=== PATIENT | male | born 1990 | race Caucasian/White ===

== ENCOUNTER 2021-12-06 16:47 | Emergency (ER) | payer OTHER, SELFPAY ==
[2021-12-06] VITALS (129 sets, daily range): BP systolic 83–165; BP diastolic 52–115; PULSE 41–157; RESP 12–45; TEMP 36.8; O2SAT 84–100; BMI 30.9
--- NOTE | 2021-12-06 17:02 | DI.RAD.S_ITS ---
PROCEDURE: XR CHEST 1V INDICATIONS: Short of breath TECHNIQUE: One view of the chest was acquired. COMPARISON: None. FINDINGS: Surgical changes and devices: None. Lungs and pleura: Low lung volumes are seen. There is blunting of both costophrenic angles. Generalized interstitial prominence can be seen. No pneumothorax is seen. Mediastinum: Mediastinal contours appear normal. Heart size is moderately enlarged. Bones and chest wall: No suspicious bony lesions. Overlying soft tissues appear unremarkable. IMPRESSION: Suspicion for CHF, with cardiomegaly, small bilateral pleural effusions and generalized interstitial prominence. Dictated by: Ketan Jay M.D. on 12/06/2021 at 16:49 Approved by: Ketan Jay M.D. on 12/06/2021 at 16:49
--- NOTE | 2021-12-06 17:03 | ED_ITS ---
HPI - SOB/Dyspnea <Kristy Perez DO - Last Filed: 12/07/21 08:20> General Chief Complaint: Shortness of Breath/Dyspnea Stated Complaint: SOB Time Seen by Provider: 12/06/21 17:01 Source: patient Mode of arrival: Ambulatory Limitations: no limitations History of Present Illness HPI Narrative: This is a 31-year-old male who comes with complaint of increasing dyspnea after traveling to [place] and the [facility]. Patient has noted exertional dyspnea but also to the point that now he even when resting. He has not had fevers, no cold cough or congestion. He has had some centralized chest pressure. He describes it as mild. It does not radiate. He denies nausea or vomiting he has been sweaty. Patient denies any swelling or cramping in his legs but noted he was having some cramping in his arms with cough. He denies medical issues other than obstructive sleep apnea and uses a CPAP at night. No prior embolic history. He does not take any daily medications. No prior surgeries. No known drug allergies. Patient does smoke daily, does drink alcohol occasionally, no illicit. Patient denies any family history of cardiac, pulmonary or embolic history. Related Data Allergies Allergy/AdvReac Type Severity Reaction Status Date / Time No Known Drug Allergies Allergy Verified 12/06/21 18:30 <Kristyn Rubio MD - Last Filed: 12/07/21 02:46> History of Present Illness HPI Narrative: This is a 31-year-old male who comes with complaint of increasing dyspnea after traveling to [facility]. Patient has noted exertional dyspnea but also to the point that now he even when resting. He has not had fevers, no cold cough or congestion. He has had some centralized chest pressure. He describes it as mild. It does not radiate. He denies nausea or vomiting he has been sweaty. Patient denies any swelling or cramping in his legs but noted he was having some cramping in his arms with cough. He denies medical issues other than obstructive sleep apnea and uses a CPAP at night. No prior embolic history. He does not take any daily medications. No prior surgeries. No known drug allergies. Patient does smoke daily, does drink alcohol occasionally, no illicit. Patient denies any family history of cardiac, pulmonary or embolic history. 610 pm transfer of care is sec did for this gentleman. He has independently examined. Additional history, he notes that he flew back from [place] last night. His initial symptoms were 4 days ago with dramatic onset of exertional dyspnea walking his dog and progressively worsened over the last 4 days. He traveled to [place] a month ago and had an acute viral illness with diarrhea, testing COVID negative and stool samples did not show over parasites. This has since [facility] ed. In terms of stimulant use he states that he typically has between 4 and 5 cups of coffee over the course of the day but does not use any additional stimulants and specifically denies cocaine, amphetamine or methamphetamine. Notes that he had been taking testosterone for body building but has not done this for a number of months. He does have a CPAP at home Review of Systems <Kristy Perez DO - Last Filed: 12/07/21 08:20> Review of Systems ROS Unobtainable: All systems reviewed & are unremarkable except as noted in HPI and below Patient History <Kristy Perez DO - Last Filed: 12/07/21 08:20> Social History Smoking Status: Current every day smoker Exam <Kristy Perez DO - Last Filed: 12/07/21 08:20> Narrative Exam Narrative: GEN: Male, alert and oriented x 3, patient appears to be in moderate distress. Patient is diaphoretic HEENT: Atraumatic, pupils are equal round reactive to light, extraocular movements are intact, nares are clear. HEART: Tachycardic irregularly irregular rate and rhythm without murmur, clicks, rubs. Patient has poor cap refill. LUNGS:Lungs wheezes bilaterally, no rales, crackles, chest moves symmetrically, positive for tachypnea speaks in 3-4 word sentences. ABD:bowel sounds normal, soft, non-tender, no guarding, rebound, rigidity, no masses noted, no hepatosplenomegaly :No CVA tenderness MSCL: Non-tender, patient does not any swelling bilateral lower extremities. Muscles strength 5/5 upper and lower extremities, full range of motion. NEURO:CN 2-12 intact, sensation normal SKIN: No rash or petechiae. On Re exam after he returns from CT scan, 6:10 p.m. General poor perfusion overall with significantly delayed peripheral capillary refill. Diaphoretic. Respiratory: Increased tachypnea, for 5 word sentences. Minimal bibasilar crackles Cardiac: Irregularly irregular with a rate in the 130 range. No rubs and no murmurs are appreciated. Positive JVD Abdomen: Benign. No hepatic jugular reflux Extremities: Moving all extremities. No edema. For refill even in upper extremities Initial Vital Signs Initial Vital Signs: Vital Signs Temperature 98.2 F 12/06/21 16:47 Pulse Rate 60 12/06/21 16:47 Respiratory Rate 22 12/06/21 16:47 Blood Pressure 158/106 H 12/06/21 16:47 Pulse Oximetry 96 12/06/21 16:47 Oxygen Delivery Method 12/06/21 16:47 <Kristyn Rubio MD - Last Filed: 12/07/21 02:46> Narrative Exam Narrative: GEN: Male, alert and oriented x 3, patient appears to be in moderate distress. Patient is diaphoretic HEENT: Atraumatic, pupils are equal round reactive to light, extraocular movements are intact, nares are clear. HEART: Bradycardic but Regular rate and rhythm without murmur, clicks, rubs. Patient has poor cap refill. LUNGS:Lungs clear to auscultation, no wheezes, rales, crackles, chest moves symmetrically, positive for tachypnea speaks in 3-4 word sentences. ABD:bowel sounds normal, soft, non-tender, no guarding, rebound, rigidity, no masses noted, no hepatosplenomegaly :No CVA tenderness MSCL: Non-tender, patient does not any swelling bilateral lower extremities. Muscles strength 5/5 upper and lower extremities, full range of motion, normal gait NEURO:CN 2-12 intact, sensation normal SKIN: No rash or petechiae. On Re exam after he returns from CT scan, 6:10 p.m. General poor perfusion overall with significantly delayed peripheral capillary refill. Diaphoretic. Respiratory: Increased tachypnea, for 5 word sentences. Minimal bibasilar crackles Cardiac: Irregularly irregular with a rate in the 130 range. No rubs and no murmurs are appreciated. Positive JVD Abdomen: Benign. No hepatic jugular reflux Extremities: Moving all extremities. No edema. For refill even in upper extremities Initial Vital Signs Initial Vital Signs: Vital Signs Temperature 98.2 F 12/06/21 16:47 Pulse Rate 60 12/06/21 16:47 Respiratory Rate 22 12/06/21 16:47 Blood Pressure 158/106 H 12/06/21 16:47 Pulse Oximetry 96 12/06/21 16:47 Oxygen Delivery Method 12/06/21 16:47 Course <Kristy C Chris, - Last Filed: 12/07/21 08:20> Orders Ordered: ED Orders 12/07/21 00:37 Partial Thromboplastin Time Q6H 12/07/21 06:15 Partial Thromboplastin Time Q6H Discontinued Medications Digoxin (Digoxin 500 Mcg/2 Ml Ampul) 250 mcg IV NOW ONE Stop: 12/06/21 18:38 Last Admin: 12/06/21 18:54 Dose: 250 mcg Documented By: TABITHA Diltiazem HCl (Diltiazem 5 Mg/Ml Sdv) 20 mg IV NOW ONE Stop: 12/06/21 17:29 Last Admin: 12/06/21 17:35 Dose: Not Given Documented By: EVELIN Furosemide (Furosemide 100 Mg/10 Ml Vial) 60 mg IV NOW ONE Stop: 12/06/21 18:38 Last Admin: 12/06/21 18:54 Dose: 60 mg Documented By: TABITHA Heparin Sodium (Porcine) (Heparin 5,000 Unit/Ml Vial) 8,500 unit 80 unit/kg (8500 unit) IV NOW ONE Stop: 12/06/21 18:10 Last Admin: 12/06/21 18:31 Dose: 8,500 unit Documented By: TABITHA(2) Heparin Sodium (Porcine) (Heparin 5,000 Unit/Ml Vial) 5,000 unit IV NOW ONE Stop: 12/07/21 01:17 Sodium Chloride (Normal Saline 0.9%) 1,000 mls @ 1,000 mls/hr IV BOLUS ONE Stop: 12/06/21 18:30 Last Infusion: 12/06/21 19:21 Dose: 0 mls/hr Documented By: Admin: 12/06/21 18:00 Dose: 1,000 mls/hr Documented By: TABITHA(2) Admin: 12/06/21 17:44 Dose: 1,000 mls/hr Documented By: TABITHA(3) DILTIAZEM (Diltiazem 125 Mg/125 Ml-D5w) 125 mg in 125 mls @ 5 mls/hr IV TITRATE DILLAN; Protocol Last Admin: 12/06/21 18:30 Dose: Not Given Documented By: TABITHA(2) Heparin Sodium/Dextrose (Heparin Drip) 25,000 unit in 500 mls @ 24 mls/hr IV CONT DILLAN; Protocol Last Titration: 12/07/21 01:15 Dose: 1,250 units/hr, 25 mls/hr Documented By: Titration: 12/07/21 01:14 Dose: 1,400 units/hr, 28 mls/hr Documented By: Admin: 12/06/21 18:32 Dose: 1,200 units/hr, 24 mls/hr Documented By: TABITHA(2) DILTIAZEM (Diltiazem 125 Mg/125 Ml-D5w) 125 mg in 125 mls @ 5 mls/hr IV TITRATE DILLAN; Protocol Last Titration: 12/06/21 22:27 Dose: 0 mg/hr, 0 mls/hr Documented By: Titration: 12/06/21 22:13 Dose: 5 mg/hr, 5 mls/hr Documented By: Titration: 12/06/21 20:28 Dose: 10 mg/hr, 10 mls/hr Documented By: Titration: 12/06/21 20:00 Dose: 15 mg/hr, 15 mls/hr Documented By: Titration: 12/06/21 19:38 Dose: 10 mg/hr, 10 mls/hr Documented By: Admin: 12/06/21 19:18 Dose: 5 mg/hr, 5 mls/hr Documented By: TABITHA Ketamine HCl (Ketamine 500 Mg/5 Ml Inj) 200 mg IM NOW ONE Stop: 12/06/21 23:18 Last Admin: 12/07/21 00:33 Dose: Not Given Documented By: EB Metoprolol Tartrate (Metoprolol Tartrate 5 Mg/5 Ml Inj) 5 mg IV Q5M DILLAN Stop: 12/06/21 17:41 Last Admin: 12/06/21 18:41 Dose: Not Given Documented By: TABITHA(2) Admin: 12/06/21 18:41 Dose: Not Given Documented By: TABITHA(2) Admin: 12/06/21 17:34 Dose: 5 mg Documented By: TABITHA(3) Vital Signs Vital signs: Vital Signs - 8 hr 12/07/21 00:15 12/07/21 00:16 12/07/21 00:16 Pulse Rate 110 H 105 H Respiratory Rate 28 H 27 H Blood Pressure 123/77 Pulse Oximetry 93 93 Fraction of Inspired Oxygen 12/07/21 00:20 12/07/21 00:25 12/07/21 00:30 Pulse Rate 121 H 114 H 105 H Respiratory Rate 28 H 18 14 Blood Pressure Pulse Oximetry 93 95 95 Fraction of Inspired Oxygen 12/07/21 00:35 12/07/21 00:40 12/07/21 00:40 Pulse Rate 126 H 111 H Respiratory Rate 31 H 15 Blood Pressure 137/68 Pulse Oximetry 94 96 Fraction of Inspired Oxygen 12/07/21 00:45 12/07/21 00:45 12/07/21 00:50 Pulse Rate 130 H 115 H Respiratory Rate 19 16 Blood Pressure 108/53 L Pulse Oximetry 96 96 Fraction of Inspired Oxygen 12/07/21 00:55 12/07/21 01:00 12/07/21 01:01 Pulse Rate 137 H 128 H 112 H Respiratory Rate 23 21 15 Blood Pressure Pulse Oximetry 95 95 95 Fraction of Inspired Oxygen 12/07/21 01:01 12/07/21 01:05 12/07/21 01:10 Pulse Rate 135 H 117 H Respiratory Rate 20 16 Blood Pressure 111/59 L Pulse Oximetry 95 94 Fraction of Inspired Oxygen 12/07/21 01:15 12/07/21 01:20 12/07/21 01:25 Pulse Rate 129 H 128 H 128 H Respiratory Rate 23 21 21 Blood Pressure Pulse Oximetry 93 95 96 Fraction of Inspired Oxygen 12/07/21 01:30 12/07/21 01:31 12/07/21 01:31 Pulse Rate 122 H 120 H Respiratory Rate 22 25 H Blood Pressure 163/117 H Pulse Oximetry 95 95 Fraction of Inspired Oxygen 12/07/21 01:35 12/07/21 01:40 12/07/21 01:45 Pulse Rate 123 H 113 H 121 H Respiratory Rate 16 14 26 H Blood Pressure Pulse Oximetry 95 95 96 Fraction of Inspired Oxygen 12/07/21 01:50 12/07/21 01:55 12/07/21 00:20 Pulse Rate 135 H 106 H Respiratory Rate 23 23 Blood Pressure 111/60 Pulse Oximetry 94 94 Fraction of Inspired Oxygen 30 <Kristyn L Laursen, MD - Last Filed: 12/07/21 02:46> Orders Ordered: ED Orders 12/07/21 00:37 Partial Thromboplastin Time Q6H 12/07/21 06:15 Partial Thromboplastin Time Q6H Discontinued Medications Digoxin (Digoxin 500 Mcg/2 Ml Ampul) 250 mcg IV NOW ONE Stop: 12/06/21 18:38 Last Admin: 12/06/21 18:54 Dose: 250 mcg Documented By: TABITHA Diltiazem HCl (Diltiazem 5 Mg/Ml Sdv) 20 mg IV NOW ONE Stop: 12/06/21 17:29 Last Admin: 12/06/21 17:35 Dose: Not Given Documented By: EVELIN Furosemide (Furosemide 100 Mg/10 Ml Vial) 60 mg IV NOW ONE Stop: 12/06/21 18:38 Last Admin: 12/06/21 18:54 Dose: 60 mg Documented By: TABITHA Heparin Sodium (Porcine) (Heparin 5,000 Unit/Ml Vial) 8,500 unit 80 unit/kg (8500 unit) IV NOW ONE Stop: 12/06/21 18:10 Last Admin: 12/06/21 18:31 Dose: 8,500 unit Documented By: TABITHA(2) Heparin Sodium (Porcine) (Heparin 5,000 Unit/Ml Vial) 5,000 unit IV NOW ONE Stop: 12/07/21 01:17 Sodium Chloride (Normal Saline 0.9%) 1,000 mls @ 1,000 mls/hr IV BOLUS ONE Stop: 12/06/21 18:30 Last Infusion: 12/06/21 19:21 Dose: 0 mls/hr Documented By: Admin: 12/06/21 18:00 Dose: 1,000 mls/hr Documented By: TABITHA(2) Admin: 12/06/21 17:44 Dose: 1,000 mls/hr Documented By: TABITHA(3) DILTIAZEM (Diltiazem 125 Mg/125 Ml-D5w) 125 mg in 125 mls @ 5 mls/hr IV TITRATE DILLAN; Protocol Last Admin: 12/06/21 18:30 Dose: Not Given Documented By: TABITHA(2) Heparin Sodium/Dextrose (Heparin Drip) 25,000 unit in 500 mls @ 24 mls/hr IV CONT DILLAN; Protocol Last Titration: 12/07/21 01:15 Dose: 1,250 units/hr, 25 mls/hr Documented By: Titration: 12/07/21 01:14 Dose: 1,400 units/hr, 28 mls/hr Documented By: Admin: 12/06/21 18:32 Dose: 1,200 units/hr, 24 mls/hr Documented By: TABITHA(2) DILTIAZEM (Diltiazem 125 Mg/125 Ml-D5w) 125 mg in 125 mls @ 5 mls/hr IV TITRATE DILLAN; Protocol Last Titration: 12/06/21 22:27 Dose: 0 mg/hr, 0 mls/hr Documented By: Titration: 12/06/21 22:13 Dose: 5 mg/hr, 5 mls/hr Documented By: Titration: 12/06/21 20:28 Dose: 10 mg/hr, 10 mls/hr Documented By: Titration: 12/06/21 20:00 Dose: 15 mg/hr, 15 mls/hr Documented By: Titration: 12/06/21 19:38 Dose: 10 mg/hr, 10 mls/hr Documented By: Admin: 12/06/21 19:18 Dose: 5 mg/hr, 5 mls/hr Documented By: TABITHA Ketamine HCl (Ketamine 500 Mg/5 Ml Inj) 200 mg IM NOW ONE Stop: 12/06/21 23:18 Last Admin: 12/07/21 00:33 Dose: Not Given Documented By: EVELIN Metoprolol Tartrate (Metoprolol Tartrate 5 Mg/5 Ml Inj) 5 mg IV Q5M DILLAN Stop: 12/06/21 17:41 Last Admin: 12/06/21 18:41 Dose: Not Given Documented By: TABITHA(2) Admin: 12/06/21 18:41 Dose: Not Given Documented By: TABITHA(2) Admin: 12/06/21 17:34 Dose: 5 mg Documented By: TABITHA(3) Vital Signs Vital signs: Vital Signs - 8 hr 12/07/21 00:15 12/07/21 00:16 12/07/21 00:16 Pulse Rate 110 H 105 H Respiratory Rate 28 H 27 H Blood Pressure 123/77 Pulse Oximetry 93 93 Fraction of Inspired Oxygen 12/07/21 00:20 12/07/21 00:25 12/07/21 00:30 Pulse Rate 121 H 114 H 105 H Respiratory Rate 28 H 18 14 Blood Pressure Pulse Oximetry 93 95 95 Fraction of Inspired Oxygen 12/07/21 00:35 12/07/21 00:40 12/07/21 00:40 Pulse Rate 126 H 111 H Respiratory Rate 31 H 15 Blood Pressure 137/68 Pulse Oximetry 94 96 Fraction of Inspired Oxygen 12/07/21 00:45 12/07/21 00:45 12/07/21 00:50 Pulse Rate 130 H 115 H Respiratory Rate 19 16 Blood Pressure 108/53 L Pulse Oximetry 96 96 Fraction of Inspired Oxygen 12/07/21 00:55 12/07/21 01:00 12/07/21 01:01 Pulse Rate 137 H 128 H 112 H Respiratory Rate 23 21 15 Blood Pressure Pulse Oximetry 95 95 95 Fraction of Inspired Oxygen 12/07/21 01:01 12/07/21 01:05 12/07/21 01:10 Pulse Rate 135 H 117 H Respiratory Rate 20 16 Blood Pressure 111/59 L Pulse Oximetry 95 94 Fraction of Inspired Oxygen 12/07/21 01:15 12/07/21 01:20 12/07/21 01:25 Pulse Rate 129 H 128 H 128 H Respiratory Rate 23 21 21 Blood Pressure Pulse Oximetry 93 95 96 Fraction of Inspired Oxygen 12/07/21 01:30 12/07/21 01:31 12/07/21 01:31 Pulse Rate 122 H 120 H Respiratory Rate 22 25 H Blood Pressure 163/117 H Pulse Oximetry 95 95 Fraction of Inspired Oxygen 12/07/21 01:35 12/07/21 01:40 12/07/21 01:45 Pulse Rate 123 H 113 H 121 H Respiratory Rate 16 14 26 H Blood Pressure Pulse Oximetry 95 95 96 Fraction of Inspired Oxygen 12/07/21 01:50 12/07/21 01:55 12/07/21 00:20 Pulse Rate 135 H 106 H Respiratory Rate 23 23 Blood Pressure 111/60 Pulse Oximetry 94 94 Fraction of Inspired Oxygen 30 MDM - SOB/Dyspnea <Kristy Perez DO - Last Filed: 12/07/21 08:20> Lab Data Result diagrams: 12/06/21 17:11 12/06/21 17:11 Labs: Lab Results 12/06/21 12/06/21 12/06/21 Range/Units 16:56 17:11 17:11 WBC 12.4 H (4.5-11.0) X10^3/uL RBC 5.53 (4.5-5.9) X10^6/uL Hgb 17.7 H (13.5-17.5) g/dL Hct 51.6 (41-53) % MCV 93.4 (80-100) fL MCH 32.1 (26-34) PG MCHC 34.3 (30-36) % RDW 13.6 (11.6-14.8) % Plt Count 218 (150-400) X10^3/uL Neut % (Auto) 55.8 (50-75) % Lymph % (Auto) 32.4 (25-40) % Lipscomb % (Auto) 8.5 (3-14) % Eos % (Auto) 2.6 (2-4) % Baso % (Auto) 0.7 (0-2) % Neut # (Auto) 6900 (9469-7279) /uL Lymph # (Auto) 4000 (4402-6782) /uL Lipscomb # (Auto) 1000 H (0-900) /uL Eos # (Auto) 300 (0-450) /uL Baso # (Auto) 100 (0-100) /uL PT 15.3 H (10.1-12.7) SECONDS INR 1.4 H (0.9-1.3) APTT 34 (26.4-36.2) SECONDS D-Dimer 993 H (<230) ng/mL ABG pH (7.35-7.45) ABG pCO2 (35-45) mmHg ABG pO2 (80-100) mmHg ABG HCO3 (22-26) mmol/L ABG Total CO2 (21-31) mmol/L ABG O2 Saturation (95-100) % ABG Base Excess (-2-2) mmol/L FiO2 Sodium (137-145) mmol/L Potassium (3.4-5.1) mmol/L Chloride (98-107) mmol/L Carbon Dioxide (22-32) mmol/L BUN (9-20) mg/dL Creatinine (0.66-1.25) mg/dL Estimated GFR (>60) mL/min BUN/Creatinine Ratio (6-22) Glucose (70-100) mg/dL Lactate (0.7-2.1) mmol/L Calcium (8.4-10.2) mg/dL Total Bilirubin (0.2-1.3) mg/dL AST (17-59) IU/L ALT (<50) IU/L Alkaline Phosphatase (38-126) U/L Total Creatine Kinase (55-170) U/L CK-MB (CK-2) (<2.37) ng/mL CK-MB (CK-2) Rel Index (1.5-5.0) % Troponin I (0.01-0.034) ng/mL NT-Pro-B Natriuret Pep (<125) pg/mL Total Protein (6.3-8.2) g/dL Albumin (3.5-5.0) g/dL Globulin (1.7-4.1) g/dL Albumin/Globulin Ratio (1.0-2.8) Lipase (23-300) U/L Procalcitonin (<0.5) ng/mL Chlamy pneumoniae PCR (Not Detect) Adenovirus (PCR) (Not Detect) B. pertussis DNA (PCR) (Not Detecte) B.parapertussis DNA PCR (Not Detecte) Coronavirus OC43 (PCR) (Not Detect) Coronavirus HKU1 (PCR) (Not Detect) Coronavirus 229E (PCR) (Not Detect) SARS-CoV-2 (PCR) Negative (Negative) Coronavirus NL63 (PCR) (Not Detect) Human Metapneumovir PCR (Not Detect) Influenza Type A (PCR) (Not Detect) Influenza Type B (PCR) (Not Detect) M. pneumoniae (PCR) (Not Detect) Parainfluenza 1 (PCR) (Not Detect) Parainfluenza 2 (PCR) (Not Detect) Parainfluenza 3 (PCR) (Not Detect) Parainfluenza 4 (PCR) (Not Detect) RSV (PCR) (Not Detect) Entero/Rhino (PCR) (Not Detect) 12/06/21 12/06/21 12/06/21 Range/Units 17:11 17:11 17:11 WBC (4.5-11.0) X10^3/uL RBC (4.5-5.9) X10^6/uL Hgb (13.5-17.5) g/dL Hct (41-53) % MCV (80-100) fL MCH (26-34) PG MCHC (30-36) % RDW (11.6-14.8) % Plt Count (150-400) X10^3/uL Neut % (Auto) (50-75) % Lymph % (Auto) (25-40) % Lipscomb % (Auto) (3-14) % Eos % (Auto) (2-4) % Baso % (Auto) (0-2) % Neut # (Auto) (1742-8753) /uL Lymph # (Auto) (3501-2744) /uL Lipscomb # (Auto) (0-900) /uL Eos # (Auto) (0-450) /uL Baso # (Auto) (0-100) /uL PT (10.1-12.7) SECONDS INR (0.9-1.3) APTT (26.4-36.2) SECONDS D-Dimer (<230) ng/mL ABG pH (7.35-7.45) ABG pCO2 (35-45) mmHg ABG pO2 (80-100) mmHg ABG HCO3 (22-26) mmol/L ABG Total CO2 (21-31) mmol/L ABG O2 Saturation (95-100) % ABG Base Excess (-2-2) mmol/L FiO2 Sodium 137 (137-145) mmol/L Potassium 4.7 (3.4-5.1) mmol/L Chloride 105 (98-107) mmol/L Carbon Dioxide 17 L (22-32) mmol/L BUN 18 (9-20) mg/dL Creatinine 1.62 H (0.66-1.25) mg/dL Estimated GFR 57 L (>60) mL/min BUN/Creatinine Ratio 11.1 (6-22) Glucose 108 H (70-100) mg/dL Lactate 2.1 (0.7-2.1) mmol/L Calcium 8.4 (8.4-10.2) mg/dL Total Bilirubin 0.9 (0.2-1.3) mg/dL AST 53 (17-59) IU/L ALT 87 H (<50) IU/L Alkaline Phosphatase 45 (38-126) U/L Total Creatine Kinase 268 H (55-170) U/L CK-MB (CK-2) 2.83 H (<2.37) ng/mL CK-MB (CK-2) Rel Index 1.1 L (1.5-5.0) % Troponin I 0.045 H (0.01-0.034) ng/mL NT-Pro-B Natriuret Pep 3830 H (<125) pg/mL Total Protein 6.7 (6.3-8.2) g/dL Albumin 4.0 (3.5-5.0) g/dL Globulin 2.7 (1.7-4.1) g/dL Albumin/Globulin Ratio 1.5 (1.0-2.8) Lipase 122 (23-300) U/L Procalcitonin (<0.5) ng/mL Chlamy pneumoniae PCR (Not Detect) Adenovirus (PCR) (Not Detect) B. pertussis DNA (PCR) (Not Detecte) B.parapertussis DNA PCR (Not Detecte) Coronavirus OC43 (PCR) (Not Detect) Coronavirus HKU1 (PCR) (Not Detect) Coronavirus 229E (PCR) (Not Detect) SARS-CoV-2 (PCR) (Negative) Coronavirus NL63 (PCR) (Not Detect) Human Metapneumovir PCR (Not Detect) Influenza Type A (PCR) (Not Detect) Influenza Type B (PCR) (Not Detect) M. pneumoniae (PCR) (Not Detect) Parainfluenza 1 (PCR) (Not Detect) Parainfluenza 2 (PCR) (Not Detect) Parainfluenza 3 (PCR) (Not Detect) Parainfluenza 4 (PCR) (Not Detect) RSV (PCR) (Not Detect) Entero/Rhino (PCR) (Not Detect) 12/06/21 12/06/21 12/06/21 Range/Units 17:11 18:20 18:50 WBC (4.5-11.0) X10^3/uL RBC (4.5-5.9) X10^6/uL Hgb (13.5-17.5) g/dL Hct (41-53) % MCV (80-100) fL MCH (26-34) PG MCHC (30-36) % RDW (11.6-14.8) % Plt Count (150-400) X10^3/uL Neut % (Auto) (50-75) % Lymph % (Auto) (25-40) % Lipscomb % (Auto) (3-14) % Eos % (Auto) (2-4) % Baso % (Auto) (0-2) % Neut # (Auto) (0370-0409) /uL Lymph # (Auto) (2479-8738) /uL Lipscomb # (Auto) (0-900) /uL Eos # (Auto) (0-450) /uL Baso # (Auto) (0-100) /uL PT (10.1-12.7) SECONDS INR (0.9-1.3) APTT (26.4-36.2) SECONDS D-Dimer (<230) ng/mL ABG pH 7.35 (7.35-7.45) ABG pCO2 26.5 L (35-45) mmHg ABG pO2 62 L (80-100) mmHg ABG HCO3 15 L (22-26) mmol/L ABG Total CO2 15 L (21-31) mmol/L ABG O2 Saturation 91 L (95-100) % ABG Base Excess -11.0 L (-2-2) mmol/L FiO2 21 Sodium (137-145) mmol/L Potassium (3.4-5.1) mmol/L Chloride (98-107) mmol/L Carbon Dioxide (22-32) mmol/L BUN (9-20) mg/dL Creatinine (0.66-1.25) mg/dL Estimated GFR (>60) mL/min BUN/Creatinine Ratio (6-22) Glucose (70-100) mg/dL Lactate (0.7-2.1) mmol/L Calcium (8.4-10.2) mg/dL Total Bilirubin (0.2-1.3) mg/dL AST (17-59) IU/L ALT (<50) IU/L Alkaline Phosphatase (38-126) U/L Total Creatine Kinase (55-170) U/L CK-MB (CK-2) (<2.37) ng/mL CK-MB (CK-2) Rel Index (1.5-5.0) % Troponin I (0.01-0.034) ng/mL NT-Pro-B Natriuret Pep (<125) pg/mL Total Protein (6.3-8.2) g/dL Albumin (3.5-5.0) g/dL Globulin (1.7-4.1) g/dL Albumin/Globulin Ratio (1.0-2.8) Lipase (23-300) U/L Procalcitonin 0.10 (<0.5) ng/mL Chlamy pneumoniae PCR Not detected (Not Detect) Adenovirus (PCR) Not detected (Not Detect) B. pertussis DNA (PCR) Not detected (Not Detecte) B.parapertussis DNA PCR Not detected (Not Detecte) Coronavirus OC43 (PCR) Not detected (Not Detect) Coronavirus HKU1 (PCR) Not detected (Not Detect) Coronavirus 229E (PCR) Not detected (Not Detect) SARS-CoV-2 (PCR) Not detected (Negative) Coronavirus NL63 (PCR) Not detected (Not Detect) Human Metapneumovir PCR Not detected (Not Detect) Influenza Type A (PCR) Not detected (Not Detect) Influenza Type B (PCR) Not detected (Not Detect) M. pneumoniae (PCR) Not detected (Not Detect) Parainfluenza 1 (PCR) Not detected (Not Detect) Parainfluenza 2 (PCR) Not detected (Not Detect) Parainfluenza 3 (PCR) Not detected (Not Detect) Parainfluenza 4 (PCR) Not detected (Not Detect) RSV (PCR) Not detected (Not Detect) Entero/Rhino (PCR) Not detected (Not Detect) 12/06/21 12/06/21 12/07/21 Range/Units 19:19 19:43 00:37 WBC (4.5-11.0) X10^3/uL RBC (4.5-5.9) X10^6/uL Hgb (13.5-17.5) g/dL Hct (41-53) % MCV (80-100) fL MCH (26-34) PG MCHC (30-36) % RDW (11.6-14.8) % Plt Count (150-400) X10^3/uL Neut % (Auto) (50-75) % Lymph % (Auto) (25-40) % Lipscomb % (Auto) (3-14) % Eos % (Auto) (2-4) % Baso % (Auto) (0-2) % Neut # (Auto) (9306-1338) /uL Lymph # (Auto) (0932-8008) /uL Lipscomb # (Auto) (0-900) /uL Eos # (Auto) (0-450) /uL Baso # (Auto) (0-100) /uL PT (10.1-12.7) SECONDS INR (0.9-1.3) APTT 45 H D (26.4-36.2) SECONDS D-Dimer (<230) ng/mL ABG pH (7.35-7.45) ABG pCO2 (35-45) mmHg ABG pO2 (80-100) mmHg ABG HCO3 (22-26) mmol/L ABG Total CO2 (21-31) mmol/L ABG O2 Saturation (95-100) % ABG Base Excess (-2-2) mmol/L FiO2 Sodium (137-145) mmol/L Potassium (3.4-5.1) mmol/L Chloride (98-107) mmol/L Carbon Dioxide (22-32) mmol/L BUN (9-20) mg/dL Creatinine (0.66-1.25) mg/dL Estimated GFR (>60) mL/min BUN/Creatinine Ratio (6-22) Glucose (70-100) mg/dL Lactate 1.9 (0.7-2.1) mmol/L Calcium (8.4-10.2) mg/dL Total Bilirubin (0.2-1.3) mg/dL AST (17-59) IU/L ALT (<50) IU/L Alkaline Phosphatase (38-126) U/L Total Creatine Kinase (55-170) U/L CK-MB (CK-2) (<2.37) ng/mL CK-MB (CK-2) Rel Index (1.5-5.0) % Troponin I 0.046 H (0.01-0.034) ng/mL NT-Pro-B Natriuret Pep (<125) pg/mL Total Protein (6.3-8.2) g/dL Albumin (3.5-5.0) g/dL Globulin (1.7-4.1) g/dL Albumin/Globulin Ratio (1.0-2.8) Lipase (23-300) U/L Procalcitonin (<0.5) ng/mL Chlamy pneumoniae PCR (Not Detect) Adenovirus (PCR) (Not Detect) B. pertussis DNA (PCR) (Not Detecte) B.parapertussis DNA PCR (Not Detecte) Coronavirus OC43 (PCR) (Not Detect) Coronavirus HKU1 (PCR) (Not Detect) Coronavirus 229E (PCR) (Not Detect) SARS-CoV-2 (PCR) (Negative) Coronavirus NL63 (PCR) (Not Detect) Human Metapneumovir PCR (Not Detect) Influenza Type A (PCR) (Not Detect) Influenza Type B (PCR) (Not Detect) M. pneumoniae (PCR) (Not Detect) Parainfluenza 1 (PCR) (Not Detect) Parainfluenza 2 (PCR) (Not Detect) Parainfluenza 3 (PCR) (Not Detect) Parainfluenza 4 (PCR) (Not Detect) RSV (PCR) (Not Detect) Entero/Rhino (PCR) (Not Detect) MDM Narrative Medical decision making narrative: This is a 31 year old male presents to emergency department with reported history of sleep apnea and CPAP, tobacco abuse but no other personal or family history of cardiac, pulmonary embolic nature noted. Patient has had recent [place] to [place] and [facility] symptoms started several days in his travels so pulmonary emboli was high on differential, patient is in AFib RVR quite tachycardic in the 150s to 160 range initially, diaphoretic and tachypneic. Patient has poor cap refill indicating patient is not perfusing. Attempted dose of metoprolol which drop patient's blood pressure, this was held additional dose. Patient was given a small fluid bolus secondary to drop in pressure. EKG does not show STEMI, Covid swab sent, Patient may require cardioversion if continuing to decompensate. Patient's chest x-ray shows pulmonary edema, patchy infiltrate particularly at the right base and significant cardiomegaly. Patient ordered initial dose of heparing for possible PE prior to scan. Patient had been to CT and returned and on prelim evaluation no obvious PE noted but read is pending. Patient signed out to Dr. Rubio while rest of work up is pending and for further management. This is a 31-year-old male who has sleep apnea but is otherwise healthy he has had progressive dyspnea and is requiring O2 on arrival and is tachypneic. Patient is also diaphoretic. Concern for STEMI, NSTEMI, pulmonary emboli, COVID infection or pneumonia are all included. Patient's EKG shows atrial fibrillation at a weight of 155 with lateral T-wave inversion. Labs returned show a slightly elevated lactic acid which is consistent with his clinical presentation. Significantly elevated proBNP, also consistent with clinical presentation CT scan and chest x-ray. No prior history of congestive heart failure. ABG shows a pH of 7.35, CO2 of 26.5 O2 of 60-91% on room air. Result the CT scanner currently pending This appears to be cardiac or vascular in nature rather than an infectious etiology. His white count is slightly elevated at 12.4 without left shift and procalcitonin is normal. Given his viral etiology a month ago possibility of myocarditis, pericarditis as well as acute coronary syndrome. Total CK CK-MB fraction are both elevated however the relative index is normal. Troponin is slightly elevated at 0.045. ProBNP is significantly abnormal at 3830 Acute kidney injury with creatinine at 1.62. Possibility of pulmonary embolism suspected. At this time he appears both intravascularly dry and extravascular early wet. With his rapid AFib he was given a dose of metoprolol and dropped his pressures. Will try digoxin IV as well as starting him on heparin. Will begin BiPAP and Lasix and re-evaluate. Patient and his girlfriend are informed of findings concerns and plans. Questions are answered. 640 CT scan does not show pulmonary embolism however possibility of pulmonary artery hypertension is entertained. There is no pericardial effusion. Pulmonary parenchyma is described mostly as congestive heart failure rather than pneumonia or other infiltrate and again the effusions are noted in both lungs. It is possible that the atrial fibrillation with rapid ventricular response has been present for number of days and is causing congestive heart failure however his baseline health seems exceptional and I would not expect 3-4 days of a rapid heart rate to present with this dramatic clinical presentation. He does not have a sensation of rapid heart rate so that is entirely possible. 7pm due to his acute heart failure, acute presentation, young age, elevated troponin, and acute renal injury he is not going to be an acceptable candidate to admit [facility]. Care is reviewed with our hospitalist. Will begin looking for alternative placement. 715 re-evaluated. He is much more comfortable on BiPAP and perfusion is slightly improved. Will repeat troponin it has now been almost 2 hours. The IV digoxin has been given and blood pressure is now back up to a tolerable level so diltiazem drip without a diltiazem bolus will be started to see if we can slow his rate down to at least the 90-100 range. Will continue watching fluid output after Lasix had been administered. [facility] has no beds at all tonight. [facility] in [place] october and we will call back. He has been put on a waiting list a [facility] however they have multiple borders in the emergency department in likely will not have availability. Phone calls to [facility] and then to are pending. 815pm discussed with Dr Neff, cardiology. Care is excepted pending bed availability at [facility]. Bed availability is not expected for a number of days. 1125pm patient is re-examined. Doing significantly better. Perfusion is improved still obviously diminished. Was quite comfortable on BiPAP and at this point is tolerating being off BiPAP enough to eat a sandwich. Clearly has increased tachypnea off BiPAP but is able to speak in full sentences. He has put out almost 4 L of urine after given 40 mg of Lasix. 11:54 care is discussed with Dr. Ly at [facility] in [place]. Will arrange ALS transport down. Care is reviewed, questions are answered. For should there be additional questions Dr. Ly cell phone number is [phone] <Kristyn Rubio MD - Last Filed: 12/07/21 02:46> Lab Data Labs: Lab Results 12/06/21 12/06/21 12/06/21 Range/Units 16:56 17:11 17:11 WBC 12.4 H (4.5-11.0) X10^3/uL RBC 5.53 (4.5-5.9) X10^6/uL Hgb 17.7 H (13.5-17.5) g/dL Hct 51.6 (41-53) % MCV 93.4 (80-100) fL MCH 32.1 (26-34) PG MCHC 34.3 (30-36) % RDW 13.6 (11.6-14.8) % Plt Count 218 (150-400) X10^3/uL Neut % (Auto) 55.8 (50-75) % Lymph % (Auto) 32.4 (25-40) % Lipscomb % (Auto) 8.5 (3-14) % Eos % (Auto) 2.6 (2-4) % Baso % (Auto) 0.7 (0-2) % Neut # (Auto) 6900 (0426-3461) /uL Lymph # (Auto) 4000 (0533-8253) /uL Lipscomb # (Auto) 1000 H (0-900) /uL Eos # (Auto) 300 (0-450) /uL Baso # (Auto) 100 (0-100) /uL PT 15.3 H (10.1-12.7) SECONDS INR 1.4 H (0.9-1.3) APTT 34 (26.4-36.2) SECONDS D-Dimer 993 H (<230) ng/mL ABG pH (7.35-7.45) ABG pCO2 (35-45) mmHg ABG pO2 (80-100) mmHg ABG HCO3 (22-26) mmol/L ABG Total CO2 (21-31) mmol/L ABG O2 Saturation (95-100) % ABG Base Excess (-2-2) mmol/L FiO2 Sodium (137-145) mmol/L Potassium (3.4-5.1) mmol/L Chloride (98-107) mmol/L Carbon Dioxide (22-32) mmol/L BUN (9-20) mg/dL Creatinine (0.66-1.25) mg/dL Estimated GFR (>60) mL/min BUN/Creatinine Ratio (6-22) Glucose (70-100) mg/dL Lactate (0.7-2.1) mmol/L Calcium (8.4-10.2) mg/dL Total Bilirubin (0.2-1.3) mg/dL AST (17-59) IU/L ALT (<50) IU/L Alkaline Phosphatase (38-126) U/L Total Creatine Kinase (55-170) U/L CK-MB (CK-2) (<2.37) ng/mL CK-MB (CK-2) Rel Index (1.5-5.0) % Troponin I (0.01-0.034) ng/mL NT-Pro-B Natriuret Pep (<125) pg/mL Total Protein (6.3-8.2) g/dL Albumin (3.5-5.0) g/dL Globulin (1.7-4.1) g/dL Albumin/Globulin Ratio (1.0-2.8) Lipase (23-300) U/L Procalcitonin (<0.5) ng/mL Chlamy pneumoniae PCR (Not Detect) Adenovirus (PCR) (Not Detect) B. pertussis DNA (PCR) (Not Detecte) B.parapertussis DNA PCR (Not Detecte) Coronavirus OC43 (PCR) (Not Detect) Coronavirus HKU1 (PCR) (Not Detect) Coronavirus 229E (PCR) (Not Detect) SARS-CoV-2 (PCR) Negative (Negative) Coronavirus NL63 (PCR) (Not Detect) Human Metapneumovir PCR (Not Detect) Influenza Type A (PCR) (Not Detect) Influenza Type B (PCR) (Not Detect) M. pneumoniae (PCR) (Not Detect) Parainfluenza 1 (PCR) (Not Detect) Parainfluenza 2 (PCR) (Not Detect) Parainfluenza 3 (PCR) (Not Detect) Parainfluenza 4 (PCR) (Not Detect) RSV (PCR) (Not Detect) Entero/Rhino (PCR) (Not Detect) 12/06/21 12/06/21 12/06/21 Range/Units 17:11 17:11 17:11 WBC (4.5-11.0) X10^3/uL RBC (4.5-5.9) X10^6/uL Hgb (13.5-17.5) g/dL Hct (41-53) % MCV (80-100) fL MCH (26-34) PG MCHC (30-36) % RDW (11.6-14.8) % Plt Count (150-400) X10^3/uL Neut % (Auto) (50-75) % Lymph % (Auto) (25-40) % Lipscomb % (Auto) (3-14) % Eos % (Auto) (2-4) % Baso % (Auto) (0-2) % Neut # (Auto) (8983-4595) /uL Lymph # (Auto) (3497-6835) /uL Lipscomb # (Auto) (0-900) /uL Eos # (Auto) (0-450) /uL Baso # (Auto) (0-100) /uL PT (10.1-12.7) SECONDS INR (0.9-1.3) APTT (26.4-36.2) SECONDS D-Dimer (<230) ng/mL ABG pH (7.35-7.45) ABG pCO2 (35-45) mmHg ABG pO2 (80-100) mmHg ABG HCO3 (22-26) mmol/L ABG Total CO2 (21-31) mmol/L ABG O2 Saturation (95-100) % ABG Base Excess (-2-2) mmol/L FiO2 Sodium 137 (137-145) mmol/L Potassium 4.7 (3.4-5.1) mmol/L Chloride 105 (98-107) mmol/L Carbon Dioxide 17 L (22-32) mmol/L BUN 18 (9-20) mg/dL Creatinine 1.62 H (0.66-1.25) mg/dL Estimated GFR 57 L (>60) mL/min BUN/Creatinine Ratio 11.1 (6-22) Glucose 108 H (70-100) mg/dL Lactate 2.1 (0.7-2.1) mmol/L Calcium 8.4 (8.4-10.2) mg/dL Total Bilirubin 0.9 (0.2-1.3) mg/dL AST 53 (17-59) IU/L ALT 87 H (<50) IU/L Alkaline Phosphatase 45 (38-126) U/L Total Creatine Kinase 268 H (55-170) U/L CK-MB (CK-2) 2.83 H (<2.37) ng/mL CK-MB (CK-2) Rel Index 1.1 L (1.5-5.0) % Troponin I 0.045 H (0.01-0.034) ng/mL NT-Pro-B Natriuret Pep 3830 H (<125) pg/mL Total Protein 6.7 (6.3-8.2) g/dL Albumin 4.0 (3.5-5.0) g/dL Globulin 2.7 (1.7-4.1) g/dL Albumin/Globulin Ratio 1.5 (1.0-2.8) Lipase 122 (23-300) U/L Procalcitonin (<0.5) ng/mL Chlamy pneumoniae PCR (Not Detect) Adenovirus (PCR) (Not Detect) B. pertussis DNA (PCR) (Not Detecte) B.parapertussis DNA PCR (Not Detecte) Coronavirus OC43 (PCR) (Not Detect) Coronavirus HKU1 (PCR) (Not Detect) Coronavirus 229E (PCR) (Not Detect) SARS-CoV-2 (PCR) (Negative) Coronavirus NL63 (PCR) (Not Detect) Human Metapneumovir PCR (Not Detect) Influenza Type A (PCR) (Not Detect) Influenza Type B (PCR) (Not Detect) M. pneumoniae (PCR) (Not Detect) Parainfluenza 1 (PCR) (Not Detect) Parainfluenza 2 (PCR) (Not Detect) Parainfluenza 3 (PCR) (Not Detect) Parainfluenza 4 (PCR) (Not Detect) RSV (PCR) (Not Detect) Entero/Rhino (PCR) (Not Detect) 12/06/21 12/06/21 12/06/21 Range/Units 17:11 18:20 18:50 WBC (4.5-11.0) X10^3/uL RBC (4.5-5.9) X10^6/uL Hgb (13.5-17.5) g/dL Hct (41-53) % MCV (80-100) fL MCH (26-34) PG MCHC (30-36) % RDW (11.6-14.8) % Plt Count (150-400) X10^3/uL Neut % (Auto) (50-75) % Lymph % (Auto) (25-40) % Lipscomb % (Auto) (3-14) % Eos % (Auto) (2-4) % Baso % (Auto) (0-2) % Neut # (Auto) (8050-5404) /uL Lymph # (Auto) (1241-6027) /uL Lipscomb # (Auto) (0-900) /uL Eos # (Auto) (0-450) /uL Baso # (Auto) (0-100) /uL PT (10.1-12.7) SECONDS INR (0.9-1.3) APTT (26.4-36.2) SECONDS D-Dimer (<230) ng/mL ABG pH 7.35 (7.35-7.45) ABG pCO2 26.5 L (35-45) mmHg ABG pO2 62 L (80-100) mmHg ABG HCO3 15 L (22-26) mmol/L ABG Total CO2 15 L (21-31) mmol/L ABG O2 Saturation 91 L (95-100) % ABG Base Excess -11.0 L (-2-2) mmol/L FiO2 21 Sodium (137-145) mmol/L Potassium (3.4-5.1) mmol/L Chloride (98-107) mmol/L Carbon Dioxide (22-32) mmol/L BUN (9-20) mg/dL Creatinine (0.66-1.25) mg/dL Estimated GFR (>60) mL/min BUN/Creatinine Ratio (6-22) Glucose (70-100) mg/dL Lactate (0.7-2.1) mmol/L Calcium (8.4-10.2) mg/dL Total Bilirubin (0.2-1.3) mg/dL AST (17-59) IU/L ALT (<50) IU/L Alkaline Phosphatase (38-126) U/L Total Creatine Kinase (55-170) U/L CK-MB (CK-2) (<2.37) ng/mL CK-MB (CK-2) Rel Index (1.5-5.0) % Troponin I (0.01-0.034) ng/mL NT-Pro-B Natriuret Pep (<125) pg/mL Total Protein (6.3-8.2) g/dL Albumin (3.5-5.0) g/dL Globulin (1.7-4.1) g/dL Albumin/Globulin Ratio (1.0-2.8) Lipase (23-300) U/L Procalcitonin 0.10 (<0.5) ng/mL Chlamy pneumoniae PCR Not detected (Not Detect) Adenovirus (PCR) Not detected (Not Detect) B. pertussis DNA (PCR) Not detected (Not Detecte) B.parapertussis DNA PCR Not detected (Not Detecte) Coronavirus OC43 (PCR) Not detected (Not Detect) Coronavirus HKU1 (PCR) Not detected (Not Detect) Coronavirus 229E (PCR) Not detected (Not Detect) SARS-CoV-2 (PCR) Not detected (Negative) Coronavirus NL63 (PCR) Not detected (Not Detect) Human Metapneumovir PCR Not detected (Not Detect) Influenza Type A (PCR) Not detected (Not Detect) Influenza Type B (PCR) Not detected (Not Detect) M. pneumoniae (PCR) Not detected (Not Detect) Parainfluenza 1 (PCR) Not detected (Not Detect) Parainfluenza 2 (PCR) Not detected (Not Detect) Parainfluenza 3 (PCR) Not detected (Not Detect) Parainfluenza 4 (PCR) Not detected (Not Detect) RSV (PCR) Not detected (Not Detect) Entero/Rhino (PCR) Not detected (Not Detect) 12/06/21 12/06/21 12/07/21 Range/Units 19:19 19:43 00:37 WBC (4.5-11.0) X10^3/uL RBC (4.5-5.9) X10^6/uL Hgb (13.5-17.5) g/dL Hct (41-53) % MCV (80-100) fL MCH (26-34) PG MCHC (30-36) % RDW (11.6-14.8) % Plt Count (150-400) X10^3/uL Neut % (Auto) (50-75) % Lymph % (Auto) (25-40) % Lipscomb % (Auto) (3-14) % Eos % (Auto) (2-4) % Baso % (Auto) (0-2) % Neut # (Auto) (6960-7256) /uL Lymph # (Auto) (0547-4108) /uL Lipscomb # (Auto) (0-900) /uL Eos # (Auto) (0-450) /uL Baso # (Auto) (0-100) /uL PT (10.1-12.7) SECONDS INR (0.9-1.3) APTT 45 H D (26.4-36.2) SECONDS D-Dimer (<230) ng/mL ABG pH (7.35-7.45) ABG pCO2 (35-45) mmHg ABG pO2 (80-100) mmHg ABG HCO3 (22-26) mmol/L ABG Total CO2 (21-31) mmol/L ABG O2 Saturation (95-100) % ABG Base Excess (-2-2) mmol/L FiO2 Sodium (137-145) mmol/L Potassium (3.4-5.1) mmol/L Chloride (98-107) mmol/L Carbon Dioxide (22-32) mmol/L BUN (9-20) mg/dL Creatinine (0.66-1.25) mg/dL Estimated GFR (>60) mL/min BUN/Creatinine Ratio (6-22) Glucose (70-100) mg/dL Lactate 1.9 (0.7-2.1) mmol/L Calcium (8.4-10.2) mg/dL Total Bilirubin (0.2-1.3) mg/dL AST (17-59) IU/L ALT (<50) IU/L Alkaline Phosphatase (38-126) U/L Total Creatine Kinase (55-170) U/L CK-MB (CK-2) (<2.37) ng/mL CK-MB (CK-2) Rel Index (1.5-5.0) % Troponin I 0.046 H (0.01-0.034) ng/mL NT-Pro-B Natriuret Pep (<125) pg/mL Total Protein (6.3-8.2) g/dL Albumin (3.5-5.0) g/dL Globulin (1.7-4.1) g/dL Albumin/Globulin Ratio (1.0-2.8) Lipase (23-300) U/L Procalcitonin (<0.5) ng/mL Chlamy pneumoniae PCR (Not Detect) Adenovirus (PCR) (Not Detect) B. pertussis DNA (PCR) (Not Detecte) B.parapertussis DNA PCR (Not Detecte) Coronavirus OC43 (PCR) (Not Detect) Coronavirus HKU1 (PCR) (Not Detect) Coronavirus 229E (PCR) (Not Detect) SARS-CoV-2 (PCR) (Negative) Coronavirus NL63 (PCR) (Not Detect) Human Metapneumovir PCR (Not Detect) Influenza Type A (PCR) (Not Detect) Influenza Type B (PCR) (Not Detect) M. pneumoniae (PCR) (Not Detect) Parainfluenza 1 (PCR) (Not Detect) Parainfluenza 2 (PCR) (Not Detect) Parainfluenza 3 (PCR) (Not Detect) Parainfluenza 4 (PCR) (Not Detect) RSV (PCR) (Not Detect) Entero/Rhino (PCR) (Not Detect) ABG Data ABG results: pH 7.45 co2 26.5 02 62 RA, sat 91% HCO3 15 Imaging Data Chest x-ray: Radiologist's Impression: FINDINGS:? ? Surgical changes and devices:? None.? ? Lungs and pleura:? Low lung volumes are seen.? There is blunting of both costophrenic angles.? Generalized interstitial prominence can be seen.? No pneumothorax is seen. ? Mediastinum:? Mediastinal contours appear normal.? Heart size is moderately enlarged.? ? Bones and chest wall:? No suspicious bony lesions.? Overlying soft tissues appear unremarkable.? IMPRESSION:? Suspicion for CHF, with cardiomegaly, small bilateral pleural effusions and generalized interstitial prominence. ? ? Dictated by: Ketan Jay M.D. on 12/06/2021 at 16:49? ?? CT scan - chest: Radiologist's Impression: FINDINGS:? Image quality:? Excellent.? ? Pulmonary arteries:? Main pulmonary artery measures 3.4 cm in diameter, which can be seen in the setting of pulmonary hypertension.? No filling defect is seen to suggest acute pulmonary embolism. ? Lungs and pleura:? Small bilateral pleural effusions with atelectasis of the lung bases.? Interlobular septal thickening is seen bilaterally.? P patchy consolidations are seen in the right middle and upper lobes in there are mild ground-glass opacities in the upper lobes bilaterally.? Central and peripheral airways are patent.? ? Mediastinum:? Heart size is moderately enlarged, without pericardial effusion.? Reflux of contrast material is seen into the hepatic veins.? No mediastinal or hilar adenopathy.? Thoracic aorta is normal in caliber and enhancement.? Esophagus is normal in caliber, without hiatal hernia.? ? Bones and chest wall:? No suspicious bony lesions.? Ribs and thoracic spine appear intact throughout.? Thyroid is unremarkable, but is not well visualized.? No axillary or supraclavicular adenopathy.? ? Abdomen:? Visualized upper abdominal solid organs appear normal in the early arterial phase of enhancement.? ? IMPRESSION:? 1. No acute pulmonary embolism. ? 2. Moderate cardiomegaly. ? 3. Enlargement of the main pulmonary artery to 3.5 cm, which can be seen in the setting of pulmonary arterial hypertension. ? 4. Small bilateral pleural effusions with atelectasis of the lung bases.? ? 5. Interlobular septal thickening and ground-glass opacities in both lungs are likely related to pulmonary edema.? Additional patchy consolidations and ground-glass opacities are seen in the upper lobes, and a superimposed atypical or viral pneumonia is not excluded.? Consider repeat CT in 3-6 months after symptoms have resolved to exclude underlying pulmonary neoplasm. ? ? ? Dictated by: Elgin Burton M.D. on 12/06/2021 at 18:19? ?? ECG Data Interpretation: Atrial fibrillation at a rate of 155 Inferior T-wave abnormalities But no acute ischemia MDM Narrative Medical decision making narrative: This is a 31-year-old male who has sleep apnea but is otherwise healthy he has had progressive dyspnea and is requiring O2 on arrival and is tachypneic. Patient is also diaphoretic. Concern for STEMI, NSTEMI, pulmonary emboli, COVID infection or pneumonia are all included. Patient's EKG shows atrial fibrillation at a weight of 155 with lateral T-wave inversion. Labs returned show a slightly elevated lactic acid which is consistent with his clinical presentation. Significantly elevated proBNP, also consistent with clinical presentation CT scan and chest x-ray. No prior history of congestive heart failure. ABG shows a pH of 7.35, CO2 of 26.5 O2 of 60-91% on room air. Result the CT scanner currently pending This appears to be cardiac or vascular in nature rather than an infectious et iology. His white count is slightly elevated at 12.4 without left shift and procalcitonin is normal. Given his viral etiology a month ago possibility of myocarditis, pericarditis as well as acute coronary syndrome. Total CK CK-MB fraction are both elevated however the relative index is normal. Troponin is slightly elevated at 0.045. ProBNP is significantly abnormal at 3830 Acute kidney injury with creatinine at 1.62. Possibility of pulmonary embolism suspected. At this time he appears both intravascularly dry and extravascular early wet. With his rapid AFib he was given a dose of metoprolol and dropped his pressures. Will try digoxin IV as well as starting him on heparin. Will begin BiPAP and Lasix and re-evaluate. Patient and his girlfriend are informed of findings concerns and plans. Questions are answered. 640 CT scan does not show pulmonary embolism however possibility of pulmonary artery hypertension is entertained. There is no pericardial effusion. Pulmonary parenchyma is described mostly as congestive heart failure rather than pneumonia or other infiltrate and again the effusions are noted in both lungs. It is possible that the atrial fibrillation with rapid ventricular response has been present for number of days and is causing congestive heart failure however his baseline health seems exceptional and I would not expect 3-4 days of a rapid heart rate to present with this dramatic clinical presentation. He does not have a sensation of rapid heart rate so that is entirely possible. 7pm due to his acute heart failure, acute presentation, young age, elevated troponin, and acute renal injury he is not going to be an acceptable candidate to admit [facility]. Care is reviewed with our hospitalist. Will begin looking for alternative placement. 715 re-evaluated. He is much more comfortable on BiPAP and perfusion is slightly improved. Will repeat troponin it has now been almost 2 hours. The IV digoxin has been given and blood pressure is now back up to a tolerable level so diltiazem drip without a diltiazem bolus will be started to see if we can slow his rate down to at least the 90-100 range. Will continue watching fluid output after Lasix had been administered. [facility] has no beds at all tonight. [facility] and we will call back. He has been put on a waiting list a [facility] however they have multiple borders in the emergency department in likely will not have availability. Phone calls to [facility] and then to are pending. 815pm discussed with Dr Neff, cardiology. Care is excepted pending bed availability at [facility]. Bed availability is not expected for a number of days. 1125pm patient is re-examined. Doing significantly better. Perfusion is improved still obviously diminished. Was quite comfortable on BiPAP and at this point is tolerating being off BiPAP enough to eat a sandwich. Clearly has increased tachypnea off BiPAP but is able to speak in full sentences. He has p ut out almost 4 L of urine after given 40 mg of Lasix. 11:54 care is discussed with Dr. Ly at [facility] in [place]. Will arrange ALS transport down. Care is reviewed, questions are answered. For should there be additional questions Dr. Ly cell phone number is [phone] <Kristyn Rubio MD - Last Filed: 12/07/21 02:46> Critical Care Time Critical Care Time: Yes Total Critical Care Time: 69 Attestation: Critical care time is separate from other billable procedures. There is a high probability of a significant, sudden or life-threatening deterioration that requires my full and direct attention, intervention and personal management. This critical care time includes consultation with family and other consulting doctors, review of records, and interpretation of data from labs, EKGs and imaging as well as managements of acute respiratory failure, atrial fibrillation with rapid ventricular response, new onset severe congestive heart failure with circulatory compromise, acute kidney injury, extensive consultation with multiple physicians and multiple different facilities tempting find bed placement Discharge Plan Departure Patient Disposition: [facility] Clinical Impression: Atrial fibrillation with rapid ventricular response, Acute CHF (congestive heart failure), Elevated troponin, Acute kidney injury Referrals: Miscellaneous,MD Toya [Primary Care Provider] -
--- NOTE | 2021-12-06 17:18 | DI.CT.S_ITS ---
PROCEDURE: CT ANGIO CHEST PE PROTOCOL INDICATIONS: sob, ? PE TECHNIQUE: After the administration of intravenous contrast, 2 mm thick sections acquired from the pulmonary apices to the posterior costophrenic angles. 3-dimensional maximum intensity projection (MIP) coronal and sagittal reformats were then acquired through the thorax. For radiation dose reduction, the following was used: automated exposure control, adjustment of mA and/or kV according to patient size. COMPARISON: [facility], CR, XR CHEST 1V, 12/06/2021, 17:02. FINDINGS: Image quality: Excellent. Pulmonary arteries: Main pulmonary artery measures 3.4 cm in diameter, which can be seen in the setting of pulmonary hypertension. No filling defect is seen to suggest acute pulmonary embolism. Lungs and pleura: Small bilateral pleural effusions with atelectasis of the lung bases. Interlobular septal thickening is seen bilaterally. P patchy consolidations are seen in the right middle and upper lobes in there are mild ground-glass opacities in the upper lobes bilaterally. Central and peripheral airways are patent. Mediastinum: Heart size is moderately enlarged, without pericardial effusion. Reflux of contrast material is seen into the hepatic veins. No mediastinal or hilar adenopathy. Thoracic aorta is normal in caliber and enhancement. Esophagus is normal in caliber, without hiatal hernia. Bones and chest wall: No suspicious bony lesions. Ribs and thoracic spine appear intact throughout. Thyroid is unremarkable, but is not well visualized. No axillary or supraclavicular adenopathy. Abdomen: Visualized upper abdominal solid organs appear normal in the early arterial phase of enhancement. IMPRESSION: 1. No acute pulmonary embolism. 2. Moderate cardiomegaly. 3. Enlargement of the main pulmonary artery to 3.5 cm, which can be seen in the setting of pulmonary arterial hypertension. 4. Small bilateral pleural effusions with atelectasis of the lung bases. 5. Interlobular septal thickening and ground-glass opacities in both lungs are likely related to pulmonary edema. Additional patchy consolidations and ground-glass opacities are seen in the upper lobes, and a superimposed atypical or viral pneumonia is not excluded. Consider repeat CT in 3-6 months after symptoms have resolved to exclude underlying pulmonary neoplasm. Dictated by: Elgin Burton M.D. on 12/06/2021 at 18:19 Approved by: Elgin Burton M.D. on 12/06/2021 at 18:25
[2021-12-06 17:21] LABS: Add Manual Diff / Slide Review NO; Basophils Absolute Auto 100 /uL (0-100); Basophils Percent Auto 0.7 % (0-2); Eosinophils Absolute Auto 300 /uL (0-450); Eosinophils Percent Auto 2.6 % (2-4); Hematocrit 51.6 % (41-53); Hemoglobin 17.7 g/dL (13.5-17.5); Lymphocytes Absolute Auto 4000 /uL (1100-4500); Lymphocytes Percent Auto 32.4 % (25-40); Mean Corpuscular HGB Conc 34.3 % (30-36); Mean Corpuscular Hemoglobin 32.1 PG (26-34); Mean Corpuscular Volume 93.4 fL (80-100); Monocytes Absolute Auto 1000 /uL (0-900); Monocytes Percent Auto 8.5 % (3-14); Neutrophils Absolute Auto 6900 /uL (1500-7000); Neutrophils Percent Auto 55.8 % (50-75); Platelet Count 218 X10^3/uL (150-400); Red Blood Cell Count 5.53 X10^6/uL (4.5-5.9); Red Cell Distribution Width 13.6 % (11.6-14.8); White Blood Cell Count 12.4 X10^3/uL (4.5-11.0)
[2021-12-06] MEDS: METOPROLOL TARTRATE 5 MG/5 ML INJ IV (17:34)
[2021-12-06 17:37] LABS: INR 1.4 (0.9-1.3); Prothrombin Time 15.3 SECONDS (10.1-12.7)
[2021-12-06 17:39] LABS: PTT Partial Thromboplastin Tim 34 SECONDS (26.4-36.2)
[2021-12-06 17:40] LABS: D Dimer 993 ng/mL (<230)
[2021-12-06 17:44] LABS: Lactate (Lactic Acid) 2.1 mmol/L (0.7-2.1)
[2021-12-06] MEDS: SODIUM CHLORIDE 0.9% 1,000 ML 1000 ML IV ×2 (17:44→18:00)
[2021-12-06 17:45] LABS: Alanine Aminotransferase 87 IU/L (<50); Albumin Globulin Ratio 1.5 (1.0-2.8); Alkaline Phosphatase 45 U/L (38-126); Aspartate Aminotransferase 53 IU/L (17-59); BUN Creatinine Ratio 11.1 (6-22); Bilirubin Total 0.9 mg/dL (0.2-1.3); Blood Urea Nitrogen 18 mg/dL (9-20); Calcium 8.4 mg/dL (8.4-10.2); Carbon Dioxide 17 mmol/L (22-32); Chloride 105 mmol/L (98-107); Creatine Kinase 268 U/L (55-170); Estimated Glomerular Filt Rate 57 mL/min (>60); Globulin 2.7 g/dL (1.7-4.1); Glucose 108 mg/dL (70-100); HEMOLYSIS < 15 (0-50); Lipase 122 U/L (23-300); Potassium 4.7 mmol/L (3.4-5.1); Sodium 137 mmol/L (137-145); Total Protein 6.7 g/dL (6.3-8.2)
[2021-12-06 17:57] LABS: Troponin I 0.045 ng/mL (0.01-0.034)
[2021-12-06 17:59] LABS: COVID19 -Nasal RAPID Negative (Negative)
[2021-12-06 18:00] LABS: CKMB % Relative Index 1.1 % (1.5-5.0); Creatine Kinase MB 2.83 ng/mL (<2.37)
[2021-12-06 18:10] LABS: NT-proBNP (BNP-Adult 18+) 3830 pg/mL (<125)
[2021-12-06] MEDS: HEPARIN 5,000 UNIT/ML VIAL 8500 UNIT IV (18:31)
[2021-12-06] MEDS: HEPARIN DRIP 25,000 UNIT/500 ML IV.SOLN 24 UNIT IV (18:32)
[2021-12-06 18:35] LABS: HCO3 ABG 15 mmol/L (22-26); PCO2 ABG 26.5 mmHg (35-45); PO2 ABG 62 mmHg (80-100); TCO2 ABG 15 mmol/L (21-31); pH ABG 7.35 (7.35-7.45)
[2021-12-06 18:36] LABS: Fractionated Inspired Oxygen 21; Oxygen Saturation ABG 91 % (95-100)
[2021-12-06] MEDS: DIGOXIN 500 MCG/2 ML AMPUL 250 MCG IV (18:54)
[2021-12-06] MEDS: FUROSEMIDE 100 MG/10 ML VIAL 60 MG IV (18:54)
--- NOTE | 2021-12-06 18:59 | PC.NURSE ---
1857 digoxin iv push ongoing, RT at bedside starting bipap
[2021-12-06] MEDS: DILTIAZEM 125 MG/125 ML PIGGYBACK IV (19:18)
--- NOTE | 2021-12-06 19:28 | PC.NURSE ---
Pt states he traveled by air to [place] 1 mo. ago and traveled to [place] by air this past week. Reports increased WOB x 3 days. States he recently tested negative for covid. Pt is diaphoretic, rapid HR 120-165 intermittently, RR low 20's, sleeps with c-pap. at the bedside. Physician at bedside.
[2021-12-06 19:35] LABS: Reflexed Lactate in 2 Hours Y
[2021-12-06 20:00] LABS: Troponin I 0.046 ng/mL (0.01-0.034)
[2021-12-06 20:07] LABS: Adenovirus Not Detected (Not Detect); B. parapertussis Not Detected (Not Detecte); Bordetella pertussis Not Detected (Not Detecte); Chlamydophila pneumoniae Not Detected (Not Detect); Coronavirus 229E Not Detected (Not Detect); Coronavirus HKU1 Not Detected (Not Detect); Coronavirus NL 63 Not Detected (Not Detect); Coronavirus OC43 Not Detected (Not Detect); Human Metapneumovirus Not Detected (Not Detect); Human Rhinovirus/Enterovirus Not Detected (Not Detect); Influenza A Not Detected (Not Detect); Influenza B Not Detected (Not Detect); Mycoplasma pneumoniae Not Detected (Not Detect); Parainfluenza Virus 1 Not Detected (Not Detect); Parainfluenza Virus 2 Not Detected (Not Detect); Parainfluenza Virus 3 Not Detected (Not Detect); Parainfluenza Virus 4 Not Detected (Not Detect); Respiratory Syncytial Virus Not Detected (Not Detect); SARS- CoV-2 Not Detected (Not Detecte)
[2021-12-06 20:07] LABS: Lactate 2HR (Lactic Acid Rflx) 1.9 mmol/L (0.7-2.1)
--- NOTE | 2021-12-06 23:45 | PC.NURSE ---
Pt OK'd to eat per MD. BIPAP removed and pt placed on 4L O2 to maintain Oxygen sats above 92%. Pt reports feeling significantly better than when he came in, but reports still feeling some effort to breath normal. Will place back on BIPAP once done eating.
[2021-12-07] VITALS (27 sets, daily range): BP systolic 108–163; BP diastolic 53–117; PULSE 104–137; RESP 14–31; O2SAT 93–98
[2021-12-07 00:55] LABS: PTT Partial Thromboplastin Tim 45 SECONDS (26.4-36.2)
--- NOTE | 2021-12-07 01:29 | PC.NURSE ---
Pt was initiated on heparin non-cardiac protocol. After clarification from ER provider, pt to be continued according to cardiac protocol. Based on PTT result, heparin increased only to 1250mL/hr at 0115. Correction made from initial adjustment at 0114 based on non-cardiac protocol (charted as 1400). Bolus not given.
[2021-12-08 16:22] LABS: Acinetobacter baumannii Not Detected (Not Detect); Candida albicans Not Detected (Not Detect); Candida glabrata Not Detected (Not Detect); Candida krusei Not Detected (Not Detect); Candida parapsilosis Not Detected (Not Detect); Candida tropicalis Not Detected (Not Detect); E. coli Not Detected (Not Detect); Enterobacter cloacae complex Not Detected (Not Detect); Enterobacteriaceae species Not Detected (Not Detect); Enterococcus species Not Detected (Not Detect); Haemophilus influenzae Not Detected (Not Detect); Listeria monocytogenes Not Detected (Not Detect); Neisseria meningitidis Not Detected (Not Detect); Proteus species Not Detected (Not Detect); Pseudomonas aeruginosa Not Detected (Not Detect); Serratia marcescens Not Detected (Not Detect); Staphylococcus species Not Detected (Not Detect); Streptococcus agalactiae (Gr B Not Detected (Not Detect); Streptococcus pneumonia Not Detected (Not Detect); Streptococcus pyogenes (Gr A) Not Detected (Not Detect); Streptococcus species Not Detected (Not Detect)
--- NOTE | 2021-12-08 21:04 | PC.NURSE ---
Late Entry: Lab called and advised pt BC + for gram+ bacilli. report faxed to [facility] where pt was transferred.
== END 2021-12-07 02:19 | disposition short-term general hospital (02) ==
PROVIDERS: Emergency Medicine; Emergency Provider Emergency Medicine
DX: I48.91 Unspecified atrial fibrillation (principal); I50.9 Heart failure, unspecified; R77.8 Other specified abnormalities of plasma proteins; N17.9 Acute kidney failure, unspecified; R07.9 Chest pain, unspecified; Z20.822 Contact with and (suspected) exposure to COVID-19
CPT/HCPCS: 36415; 36600; 71045; 71275; 80053; 82550; 82553; 82805; 83605; 83690; 83880; 84145; 84484; 85025; 85379; 85610; 85730; 87040; 87150; 87633; 87635; 93005; 93010; 94660; 96365; 96366; 96368; 96375; 99285; 99291; 99292; C9803; J1160; J1644; J1940; Q9967